=== PATIENT | male | born 1955 | race Asian ===

== ENCOUNTER 2016-10-26 12:26 | Inpatient (IN) | payer MEDICAID ==
[2016-10-26] VITALS (13 sets, daily range): BP systolic 98–137; BP diastolic 49–72
[~2016-10-26] VITALS: Ht 170.2 cm; Wt 74.0 kg
[2016-10-26 12:57] LABS: GLUCOSE,POINT OF CARE 120 MG/DL (70-110)
[2016-10-26] MEDS ORDERED: ONDANSETRON HCL 4 MG/2 ML VIAL IVP ONE (13:45)
[2016-10-26] MEDS ORDERED: FAMOTIDINE 10 MG/ML 2 ML VIAL IVP ONE (13:45)
[2016-10-26] MEDS ORDERED: SODIUM CHLORIDE 0.9% 1,000 ML IV ONE (13:45)
[2016-10-26 14:13] LABS: ANION GAP 5 mmol/L (8-16); CALCIUM, TOTAL 8.5 mg/dL (8.8-10.5); CARBON DIOXIDE 31 mmol/L (22-29); CHLORIDE 106 mmol/L (98-107); CREATININE 0.94 mg/dL (0.60-1.30); GLOMERULAR FILTR. RATE CALC > 60 mL/min (>60); SODIUM SERUM 142 mmol/L (136-145); UREA NITROGEN, BLOOD 12 mg/dL (7-18)
[2016-10-26 14:18] LABS: EOSINOPHILS % (AUTO) 0.2 % (1.0-6.0); LYMPHOCYTES # (AUTO) 0.9 K/uL (1.0-4.8); LYMPHOCYTES % (AUTO) 11.7 % (22.0-44.0); MEAN CORPUSCULAR HEMOGLOBIN 31.3 pg (26.0-34.0); MEAN CORPUSCULAR HGB CONC 33.4 G/dL (31.0-37.0); MEAN CORPUSCULAR VOLUME 94 fL (80-100); MONOCYTES # (AUTO) 0.2 K/uL (0.1-1.0); MONOCYTES % (AUTO) 2.5 % (2.0-9.0); NEUTROPHILS # (AUTO) 6.3 K/uL (1.8-7.7); PLATELET COUNT (AUTO) 276 K/uL (150-450); RED BLOOD CELL COUNT(AUTO) 2.13 MIL/uL (4.50-5.90); RED CELL DISTRIBUTION WIDTH 19.1 % (11.5-14.5); WHITE BLOOD COUNT (AUTO) 7.4 K/uL (4.5-11.0)
[2016-10-26 14:20] LABS: ALANINE AMINOTRANSFERASE 25 U/L (12-78); ALBUMIN 3.2 g/dL (3.4-5.0); ASPARTATE AMINOTRANSFERASE 23 U/L (15-37); BILIRUBIN,TOTAL 0.2 mg/dL (0.1-1.0); TOTAL PROTEIN, SERUM 6.5 g/dL (6.4-8.2)
[2016-10-26 14:22] LABS: HEMATOCRIT 19.9 % (41-53); HEMOGLOBIN 6.7 g/dL (13.5-17.5)
[2016-10-26 14:23] LABS: NEUTROPHILS % (AUTO) 85.6 % (40.0-70.0)
[2016-10-26 14:42] LABS: RBC MORPHOLOGY COMMENT ABNORMAL RBC MORPH
[2016-10-26] MEDS ORDERED: ACETAMINOPHEN 325 MG TABLET PO PRN ×2 (16:15→20:45)
[2016-10-26] MEDS ORDERED: ONDANSETRON HCL 4 MG/2 ML VIAL IVP PRN ×2 (16:15→20:45)
[2016-10-26] MEDS ORDERED: 0.9% SODIUM CHLORIDE 10 ML SYRINGE IVP PRN (16:15)
[2016-10-26 16:42] LABS: APPEARANCE,URINE CLEAR (CLEAR); GLUCOSE, URINE (UA) NEGATIVE (NEGATIVE); KETONES,URINE NEGATIVE (NEGATIVE); LEUKOCYTE ESTERASE ,URINE NEGATIVE (NEGATIVE); OCCULT BLOOD,URINE NEGATIVE (NEGATIVE); PH,URINE 7.5 (5.0-8.0); PROTEIN,URINE TRACE (NEGATIVE)
[2016-10-26 16:44] LABS: ADD UA MICROSCOPIC NO
[2016-10-26] MEDS ORDERED: MAGNESIUM HYDROXIDE SUSPENSION 30 ML UDCUP PO PRN (20:45)
[2016-10-26] MEDS ORDERED: ALBUTEROL SULFATE 2.5 MG/0.5 ML NEB SOLUTION NEB PRN (20:45)
[2016-10-26] MEDS: PANTOPRAZOLE SODIUM 40 MG/VIAL IVP SCH (21:49)
[2016-10-26] MEDS: DOCUSATE SODIUM 100 MG CAPSULE PO SCH (21:49)
[2016-10-27] VITALS (7 sets, daily range): BP systolic 92–122; BP diastolic 50–74
[2016-10-27] MEDS: DEXTROSE 5%-0.45% SODIUM CHL 1,000 ML IV SCH ×2 (04:24→22:39)
[2016-10-27 06:46] LABS: BASOPHILS # (AUTO) 0.02 K/uL (0.00-0.20); BASOPHILS % (AUTO) 0.4 % (0.0-2.0); EOSINOPHILS # (AUTO) 0.09 K/uL (0.00-0.70); EOSINOPHILS % (AUTO) 1.32 % (1.0-6.0); HEMATOCRIT 23.8 % (41-53); HEMOGLOBIN 7.9 g/dL (13.5-17.5); LYMPHOCYTES # (AUTO) 1.7 K/uL (1.0-4.8); LYMPHOCYTES % (AUTO) 26.3 % (22.0-44.0); MEAN CORPUSCULAR VOLUME 94 fL (80-100); MONOCYTES # (AUTO) 0.5 K/uL (0.1-1.0); MONOCYTES % (AUTO) 7.6 % (2.0-9.0); NEUTROPHILS # (AUTO) 4.3 K/uL (1.8-7.7); NEUTROPHILS % (AUTO) 64.4 % (40.0-70.0); PLATELET COUNT (AUTO) 236 K/uL (150-450); RED BLOOD CELL COUNT(AUTO) 2.54 MIL/uL (4.50-5.90); RED CELL DISTRIBUTION WIDTH 16.8 % (11.5-14.5); WHITE BLOOD COUNT (AUTO) 6.6 K/uL (4.5-11.0)
[2016-10-27] MEDS ORDERED: PEG 3350/NA SULF,BICARB,CL/KCL 4000 ML SOLUTION PO ONE (07:30)
[2016-10-27] MEDS: PANTOPRAZOLE SODIUM 40 MG/VIAL IVP SCH ×2 (08:58→20:31)
[2016-10-27] MEDS: DOCUSATE SODIUM 100 MG CAPSULE PO SCH ×2 (08:58→20:32)
[2016-10-28 04:57] VITALS: BP 121/70
[2016-10-28 07:26] LABS: BASOPHILS % (AUTO) 0.3 % (0.0-2.0); EOSINOPHILS % (AUTO) 2.5 % (1.0-6.0); HEMATOCRIT 25.3 % (41-53); HEMOGLOBIN 8.5 g/dL (13.5-17.5); LYMPHOCYTES # (AUTO) 1.2 K/uL (1.0-4.8); MEAN CORPUSCULAR HEMOGLOBIN 31.3 pg (26.0-34.0); MEAN CORPUSCULAR HGB CONC 33.8 G/dL (31.0-37.0); MEAN CORPUSCULAR VOLUME 93 fL (80-100); MONOCYTES # (AUTO) 0.4 K/uL (0.1-1.0); MONOCYTES % (AUTO) 10.1 % (2.0-9.0); NEUTROPHILS # (AUTO) 2.6 K/uL (1.8-7.7); NEUTROPHILS % (AUTO) 59.1 % (40.0-70.0); PLATELET COUNT (AUTO) 255 K/uL (150-450); RED BLOOD CELL COUNT(AUTO) 2.73 MIL/uL (4.50-5.90); RED CELL DISTRIBUTION WIDTH 19.6 % (11.5-14.5); WHITE BLOOD COUNT (AUTO) 4.3 K/uL (4.5-11.0)
[2016-10-28 07:31] LABS: ANION GAP 7 mmol/L (8-16); CALCIUM, TOTAL 8.1 mg/dL (8.8-10.5); CARBON DIOXIDE 30 mmol/L (22-29); CHLORIDE 104 mmol/L (98-107); CREATININE 1.05 mg/dL (0.60-1.30); GLOMERULAR FILTR. RATE CALC > 60 mL/min (>60); POTASSIUM 3.9 mmol/L (3.5-5.1); SODIUM SERUM 141 mmol/L (136-145); UREA NITROGEN, BLOOD 7 mg/dL (7-18)
[2016-10-28] MEDS ORDERED: SODIUM CHLORIDE 0.9% 1,000 ML IV ONE (08:00)
[2016-10-28] MEDS ORDERED: SODIUM TETRADECYL SULFATE 3% 60 MG/2 ML VIAL IVP ONE (08:00)
[2016-10-28 08:12] VITALS: BP 121/70
[2016-10-28] MEDS: DOCUSATE SODIUM 100 MG CAPSULE PO SCH ×2 (09:45→19:52)
[2016-10-28] MEDS: PANTOPRAZOLE SODIUM 40 MG/VIAL IVP SCH ×2 (09:46→19:52)
[2016-10-28 11:31] VITALS: BP 123/66
[2016-10-28] MEDS ORDERED: PHENYLEPHRINE HCL 10 MG/ML VIAL IVP ONE (12:00)
[2016-10-28] MEDS ORDERED: PROPOFOL 1% 20 ML VIAL IVP ONE (12:00)
[2016-10-28] MEDS ORDERED: LIDOCAINE HCL/PF 2% 5 ML VIAL INJ ONE (12:00)
[2016-10-28 16:10] VITALS: BP 105/60
[2016-10-28 20:00] VITALS: BP 105/58
[2016-10-29] VITALS: BP 109/70
[2016-10-29 04:39] VITALS: BP 118/68
[2016-10-29 07:20] VITALS: BP 133/77
[2016-10-29] MEDS: DOCUSATE SODIUM 100 MG CAPSULE PO SCH (08:31)
[2016-10-29] MEDS: PANTOPRAZOLE SODIUM 40 MG/VIAL IVP SCH (08:31)
[2016-10-29 11:29] VITALS: BP 118/73
[2016-10-29] MEDS ORDERED: PANTOPRAZOLE SODIUM 40 MG DR TABLET PO SCH (14:45)
[2016-10-29 15:25] VITALS: BP 131/74
[2016-10-29] MEDS ORDERED: OMEP20 PO (15:45)
[2016-10-30] MEDS ORDERED: PANTOPRAZOLE SODIUM 40 MG DR TABLET PO SCH (09:00)
== END 2016-10-29 16:30 | disposition home or self-care (01) | DRG 241 ==
LOC: EMS 12:28 → 6N 14:48
PROVIDERS: ADMIT Internal Medicine; ATTEND Internal Medicine
PROC: 30233N1 Transfusion of Nonautologous Red Blood Cells into Peripheral Vein, Percutaneous Approach (ICD-10-PCS; 2016-10-26)
PROC: 0DJD8ZZ Inspection of Lower Intestinal Tract, Via Natural or Artificial Opening Endoscopic (ICD-10-PCS; 2016-10-28)
PROC: 0DB68ZX Excision of Stomach, Via Natural or Artificial Opening Endoscopic, Diagnostic (ICD-10-PCS; principal; 2016-10-28 08:30)
DX: K26.0 Acute duodenal ulcer with hemorrhage (principal); I10 Essential (primary) hypertension; D64.9 Anemia, unspecified; E11.9 Type 2 diabetes mellitus without complications; F17.210 Nicotine dependence, cigarettes, uncomplicated; K25.0 Acute gastric ulcer with hemorrhage; K64.1 Second degree hemorrhoids; K52.9 Noninfective gastroenteritis and colitis, unspecified; K27.4 Chronic or unspecified peptic ulcer, site unspecified, with hemorrhage; Z59.0 Homelessness; Z82.49 Family history of ischemic heart disease and other diseases of the circulatory system; Z83.3 Family history of diabetes mellitus
CPT/HCPCS: 82271; 82962; 86850; 86900; 86901; 86920; 87081; 88305; 88312; 96361; 96374; 96375; 99285; C9113; J2370; J2405; J2704; J3490; J7030; P9016

== ENCOUNTER 2017-03-04 09:48 | Inpatient (IN) | payer MEDICAID ==
[~2017-03-04] VITALS: Ht 162.6 cm; Wt 77.4 kg
[~2017-03-04 09:48] MED LIST: OMEP20 PO
[2017-03-04 10:26] LABS: BASOPHILS % (AUTO) 0.4 % (0.0-2.0); EOSINOPHILS % (AUTO) 1.7 % (1.0-6.0); HEMATOCRIT 42.7 % (41-53); HEMOGLOBIN 14.4 g/dL (13.5-17.5); LYMPHOCYTES # (AUTO) 1.8 K/uL (1.0-4.8); LYMPHOCYTES % (AUTO) 24.4 % (22.0-44.0); MEAN CORPUSCULAR HEMOGLOBIN 27.9 pg (26.0-34.0); MEAN CORPUSCULAR HGB CONC 33.6 G/dL (31.0-37.0); MEAN CORPUSCULAR VOLUME 83 fL (80-100); MONOCYTES # (AUTO) 0.6 K/uL (0.1-1.0); MONOCYTES % (AUTO) 7.8 % (2.0-9.0); NEUTROPHILS # (AUTO) 4.9 K/uL (1.8-7.7); NEUTROPHILS % (AUTO) 65.7 % (40.0-70.0); PLATELET COUNT (AUTO) 244 K/uL (150-450); RED BLOOD CELL COUNT(AUTO) 5.14 MIL/uL (4.50-5.90); RED CELL DISTRIBUTION WIDTH 15.5 % (11.5-14.5)
[2017-03-04 10:31] LABS: ANION GAP 6 mmol/L (8-16); CARBON DIOXIDE 30 mmol/L (22-29); CHLORIDE 103 mmol/L (98-107); CREATININE 0.96 mg/dL (0.60-1.30); GLOMERULAR FILTR. RATE CALC > 60 mL/min (>60); GLUCOSE,RANDOM 120 mg/dL (70-110); POTASSIUM 3.9 mmol/L (3.5-5.1); SODIUM SERUM 139 mmol/L (136-145); UREA NITROGEN, BLOOD 14 mg/dL (7-18)
[2017-03-04 10:32] LABS: PROTHROMBIN TIME 10.1 SEC (9.4-11.6)
[2017-03-04 10:48] LABS: B-TYPE NATRIURETIC PEPTIDE 14 pg/mL (0-100)
[2017-03-04 11:00] LABS: ALANINE AMINOTRANSFERASE 27 U/L (12-78); ALBUMIN 3.9 g/dL (3.4-5.0); ALKALINE PHOSPHATASE 76 U/L (46-116); ASPARTATE AMINOTRANSFERASE 24 U/L (15-37); BILIRUBIN,TOTAL 0.6 mg/dL (0.1-1.0); CREATINE KINASE MB 4.9 ng/mL (0-5); CREATINE KINASE, TOTAL 369 U/L (39-308); TOTAL PROTEIN, SERUM 8.2 g/dL (6.4-8.2)
[2017-03-04] MEDS ORDERED: PANTOPRAZOLE SODIUM 40 MG/VIAL IVP ONE ×2 (11:00→12:30)
[2017-03-04] MEDS ORDERED: MORPHINE SULFATE 4 MG/ML SYRINGE IVP ONE ×2 (11:30→14:00)
[2017-03-04] MEDS ORDERED: MORPHINE SULFATE 4 MG/ML SYRINGE IM ONE (11:30)
[2017-03-04] MEDS ORDERED: ONDANSETRON HCL 4 MG/2 ML VIAL IVP ONE ×2 (11:30→14:00)
[2017-03-04] MEDS ORDERED: 0.9% SODIUM CHLORIDE 10 ML VIAL IVP ONE (12:00)
[2017-03-04] MEDS ORDERED: SUCCINYLCHOLINE CHLORIDE 20 MG/ML 10 ML VIAL IVP ONE (12:00)
[2017-03-04] MEDS ORDERED: PROPOFOL 1% 20 ML VIAL IVP ONE (12:00)
[2017-03-04] MEDS ORDERED: HYDROmorphone 2 MG/ML SYRINGE IVP ONE ×3 (12:00→15:15)
[2017-03-04] MEDS ORDERED: DEXAMETHASONE SOD PHOS 4 MG/ML VIAL IVP ONE (12:00)
[2017-03-04] MEDS ORDERED: PHENYLEPHRINE HCL 10 MG/ML VIAL IVP ONE (12:00)
[2017-03-04] MEDS ORDERED: FentaNYL CITRATE-PF 100 MCG/2 ML VIAL IVP ONE (12:00)
[2017-03-04] MEDS ORDERED: MIDAZOLAM HCL 2 MG/2 ML VIAL IVP ONE (12:00)
[2017-03-04] MEDS ORDERED: LIDOCAINE HCL/PF 2% 5 ML VIAL INJ ONE (12:00)
[2017-03-04] MEDS ORDERED: ROCURONIUM BROMIDE 10 MG/ML 5 ML VIAL IVP ONE (12:00)
[2017-03-04] MEDS ORDERED: DONNATAL/LIDOCAINE/MAALOX 55 ML BOTTLE PO ONE (12:30)
[2017-03-04] MEDS ORDERED: SODIUM CHLORIDE 0.9% 1,000 ML IV ONE ×2 (14:00→17:00)
[2017-03-04] MEDS ORDERED: BARIUM SULFATE 0.1% SUSPENSION 450 ML BOTTLE PO ONE (14:00)
[2017-03-04] MEDS ORDERED: IOVERSOL 320 MG/ML 100 ML VIAL ONE (15:27)
[2017-03-04] MEDS ORDERED: LORazepam 2 MG/ML VIAL IVP ONE (15:30)
[2017-03-04] MEDS ORDERED: 0.9% SODIUM CHLORIDE 10 ML SYRINGE IVP PRN ×2 (16:45→22:00)
[2017-03-04] MEDS ORDERED: ONDANSETRON HCL 4 MG/2 ML VIAL IVP PRN ×2 (16:45→22:15)
[2017-03-04] MEDS ORDERED: PIPERACILLIN SODIUM/TAZOBACTAM 3.375 GM/VIAL TP ONE (17:00)
[2017-03-04] MEDS ORDERED: PIPERACILLIN/TAZO 3.375 GM/D5W 50 ML IV ONE (17:00)
[2017-03-04 17:15] LABS: APPEARANCE,URINE CLEAR (CLEAR); BILIRUBIN,URINE NEGATIVE (NEGATIVE); GLUCOSE, URINE (UA) NEGATIVE (NEGATIVE); KETONES,URINE NEGATIVE (NEGATIVE); LEUKOCYTE ESTERASE ,URINE NEGATIVE (NEGATIVE); NITRATE,URINE NEGATIVE (NEGATIVE); OCCULT BLOOD,URINE NEGATIVE (NEGATIVE); PH,URINE 5.5 (5.0-8.0); PROTEIN,URINE TRACE (NEGATIVE); UROBILINOGEN,URINE 0.2 mg/dL (<=1.0)
[2017-03-04 18:06] VITALS: BP 131/74
[2017-03-04] MEDS ORDERED: MEPERIDINE-PF 25 MG/ML SYRINGE IVP PRN (18:45)
[2017-03-04] MEDS ORDERED: FentaNYL CITRATE-PF 100 MCG/2 ML VIAL IVP PRN (18:45)
[2017-03-04] MEDS ORDERED: HYDROmorphone 2 MG/ML SYRINGE IVP PRN (18:45)
[2017-03-04] MEDS ORDERED: RINGERS SOLUTION,LACTATED 1,000 ML IV ONE (18:50)
[2017-03-04] MEDS ORDERED: HEPARIN SODIUM 1000 UNITS/NS 500 ML ONE (19:37)
[2017-03-04 20:25] VITALS: BP 220/97
[2017-03-04] MEDS: PROPOFOL 1000 MG/ISO-OSM 100 ML IV PRN (20:30)
[2017-03-04 21:12] LABS: ABG A-A DIFF O2 305.8 mmHg (10-20.0); ABG BASE EXCESS -4.3 mmol/L (-2.0-3.0); ABG CARBOXYHEMOGLOBIN 1.1 % (0.0-1.5); ABG METHEMOGLOBIN 0.2 % (0.0-1.5); ABG OXYGEN CONTENT 20.3 mL/dL (15.0-23.0); ABG OXYGEN SATURATION 99.6 % (95.0-98.0); ABG OXYHEMOGLOBIN 98.3 % (94.0-100.0); ABG PCO2 44 mmHg (35-45); ABG PH 7.312 (7.35-7.450); O2 DEVICE,BLOOD GAS VENTILATOR (ROOM AIR); PEEP,BG 5 cm H2O; PO2, ARTERIAL BG 363.8 mmHg (79.0-87.0); SITE, BLOOD GAS ARTERIAL LINE; SOURCE, BLOOD GAS ARTERIAL; TEMPERATURE, FAHRENHEIT, BG 97.8 FAHREN (96.0-98.6); VT, ABG 600 ml
[2017-03-04] MEDS ORDERED: SODIUM CHLORIDE 0.9% 250 ML IV ONE (21:31)
[2017-03-04] MEDS: POTASSIUM CHL 20 MEQ/D5-NS 1,000 ML IV SCH (21:53)
[2017-03-04] MEDS: OXYGEN THERAPY IH SCH (21:53)
[2017-03-04] MEDS: NICARDipine 20 MG/DEXT,ISO-OSM 200 ML IV PRN (21:54)
[2017-03-04] MEDS: HYDROmorphone 2 MG/ML SYRINGE IVP PRN (22:25)
[2017-03-05] VITALS (8 sets, daily range): BP systolic 131–166; BP diastolic 49–61
[2017-03-05] MEDS: NICARDipine 20 MG/DEXT,ISO-OSM 200 ML IV PRN ×3 (00:27→09:31)
[2017-03-05] MEDS: PIPERACILLIN/TAZO 3.375 GM/D5W 50 ML IV SCH ×3 (00:27→16:25)
[2017-03-05] MEDS: PROPOFOL 1000 MG/ISO-OSM 100 ML IV PRN ×5 (01:17→17:59)
[2017-03-05] MEDS: POTASSIUM CHL 20 MEQ/D5-NS 1,000 ML IV SCH ×3 (05:27→21:37)
[2017-03-05 05:43] LABS: BASOPHILS % (AUTO) 0.1 % (0.0-2.0); EOSINOPHILS % (AUTO) 0 % (1.0-6.0); HEMOGLOBIN 12.4 g/dL (13.5-17.5); LYMPHOCYTES # (AUTO) 0.3 K/uL (1.0-4.8); LYMPHOCYTES % (AUTO) 5.1 % (22.0-44.0); MEAN CORPUSCULAR HEMOGLOBIN 28.1 pg (26.0-34.0); MEAN CORPUSCULAR HGB CONC 33.5 G/dL (31.0-37.0); MEAN CORPUSCULAR VOLUME 84 fL (80-100); MONOCYTES # (AUTO) 0.1 K/uL (0.1-1.0); MONOCYTES % (AUTO) 2.4 % (2.0-9.0); NEUTROPHILS # (AUTO) 5.4 K/uL (1.8-7.7); PLATELET COUNT (AUTO) 191 K/uL (150-450); RED BLOOD CELL COUNT(AUTO) 4.41 MIL/uL (4.50-5.90); RED CELL DISTRIBUTION WIDTH 15.7 % (11.5-14.5)
[2017-03-05 05:53] LABS: ANION GAP 7 mmol/L (8-16); CALCIUM, TOTAL 7.7 mg/dL (8.8-10.5); CARBON DIOXIDE 24 mmol/L (22-29); CHLORIDE 104 mmol/L (98-107); CREATININE 0.97 mg/dL (0.60-1.30); GLOMERULAR FILTR. RATE CALC > 60 mL/min (>60); GLUCOSE,RANDOM 149 mg/dL (70-110); SODIUM SERUM 135 mmol/L (136-145); UREA NITROGEN, BLOOD 14 mg/dL (7-18)
[2017-03-05 05:54] LABS: NEUTROPHILS % (AUTO) 92.4 % (40.0-70.0)
[2017-03-05] MEDS ORDERED: PANTOPRAZOLE SODIUM 40 MG/VIAL IVP SCH (09:00)
[2017-03-05] MEDS: OXYGEN THERAPY IH SCH ×2 (09:11→20:07)
[2017-03-05] MEDS: PANTOPRAZOLE SODIUM 40 MG/VIAL IVP SCH (09:12)
[2017-03-05] MEDS: HYDROmorphone 2 MG/ML SYRINGE IVP PRN (10:06)
[2017-03-05] MEDS: HydrALAZINE HCL 10 MG TABLET PO SCH ×2 (12:47→16:25)
[2017-03-05] MEDS ORDERED: SODIUM CHLORIDE 0.9% 500 ML IV ONE (20:02)
[2017-03-05] MEDS ORDERED: SODIUM CHLORIDE 0.9% 250 ML IV ONE (20:02)
[2017-03-05] MEDS ORDERED: HydrALAZINE HCL 20 MG/ML VIAL IVP SCH (21:00)
[2017-03-05] MEDS: FentaNYL CITRATE PF 500 MCG in DEXTROSE 5%-WATER 90 ML IV PRN (21:38)
[2017-03-06] VITALS (10 sets, daily range): BP systolic 126–161; BP diastolic 43–62
[2017-03-06] MEDS: PIPERACILLIN/TAZO 3.375 GM/D5W 50 ML IV SCH ×3 (00:38→16:58)
[2017-03-06] MEDS: PROPOFOL 1000 MG/ISO-OSM 100 ML IV PRN ×3 (01:27→08:59)
[2017-03-06] MEDS: HydrALAZINE HCL 20 MG/ML VIAL IVP SCH ×4 (02:33→21:00)
[2017-03-06 04:48] LABS: HEMATOCRIT 31.8 % (41-53); HEMOGLOBIN 10.8 g/dL (13.5-17.5); MEAN CORPUSCULAR HGB CONC 33.9 G/dL (31.0-37.0); MEAN CORPUSCULAR VOLUME 83 fL (80-100); PLATELET COUNT (AUTO) 187 K/uL (150-450); RED BLOOD CELL COUNT(AUTO) 3.84 MIL/uL (4.50-5.90); RED CELL DISTRIBUTION WIDTH 16.2 % (11.5-14.5)
[2017-03-06] MEDS: POTASSIUM CHL 20 MEQ/D5-NS 1,000 ML IV SCH ×3 (04:48→20:48)
[2017-03-06] MEDS: FentaNYL CITRATE PF 500 MCG in DEXTROSE 5%-WATER 90 ML IV PRN ×2 (04:49→09:45)
[2017-03-06 04:51] LABS: ANION GAP 6 mmol/L (8-16); CALCIUM, TOTAL 7.6 mg/dL (8.8-10.5); CARBON DIOXIDE 26 mmol/L (22-29); CHLORIDE 105 mmol/L (98-107); CREATININE 0.86 mg/dL (0.60-1.30); GLOMERULAR FILTR. RATE CALC > 60 mL/min (>60); GLUCOSE,RANDOM 118 mg/dL (70-110); POTASSIUM 3.8 mmol/L (3.5-5.1); SODIUM SERUM 137 mmol/L (136-145); UREA NITROGEN, BLOOD 10 mg/dL (7-18)
[2017-03-06] MEDS: OXYGEN THERAPY IH SCH ×2 (07:39→20:49)
[2017-03-06 07:57] LABS: BAND NEUTROPHILS % (MANUAL) 13 % (1-5); LYMPHOCYTES % (MANUAL) 14 % (22-44); MONOCYTES % (MANUAL) 7 % (2-9); SEGMENTED NEUTROPHILS % 66 % (40-70)
[2017-03-06] MEDS: PANTOPRAZOLE SODIUM 40 MG/VIAL IVP SCH (08:25)
[2017-03-06 08:45] LABS: SOURCE, BLOOD GAS ARTERIAL; TEMPERATURE, FAHRENHEIT, BG 98.6 FAHREN (96.0-98.6)
[2017-03-06 08:49] LABS: ABG A-A DIFF O2 84.1 mmHg (10-20.0); ABG BASE EXCESS -0.4 mmol/L (-2.0-3.0); ABG CARBOXYHEMOGLOBIN 0.5 % (0.0-1.5); ABG METHEMOGLOBIN 0.2 % (0.0-1.5); ABG OXYGEN CONTENT 16.1 mL/dL (15.0-23.0); ABG OXYGEN SATURATION 98.8 % (95.0-98.0); ABG OXYHEMOGLOBIN 98.1 % (94.0-100.0); ABG PCO2 46 mmHg (35-45); ABG PH 7.354 (7.35-7.450); ABG TOTAL HEMOGLOBIN 11.5 G/dL (12.0-18.0); PO2, ARTERIAL BG 148.1 mmHg (79.0-87.0); SITE, BLOOD GAS ARTERIAL LINE
[2017-03-06 08:50] LABS: O2 DEVICE,BLOOD GAS VENTILATOR (ROOM AIR); PEEP,BG 5 cm H2O; VT, ABG 600 ml
[2017-03-06] MEDS: METOPROLOL TARTRATE 5 MG/5 ML VIAL IVP PRN ×2 (11:11→15:13)
[2017-03-06] MEDS: HALOPERIDOL LACTATE 5 MG/ML VIAL IVP PRN (11:12)
[2017-03-06 12:06] LABS: ABG METHEMOGLOBIN 0.1 % (0.0-1.5); ABG TOTAL HEMOGLOBIN 11.7 G/dL (12.0-18.0); SOURCE, BLOOD GAS ARTERIAL; TEMPERATURE, FAHRENHEIT, BG 98.6 FAHREN (96.0-98.6)
[2017-03-06 12:09] LABS: ABG A-A DIFF O2 109.1 mmHg (10-20.0); ABG BASE EXCESS -1.5 mmol/L (-2.0-3.0); ABG HCO3 23.2 mmol/L (22.0-26.0); ABG OXYGEN CONTENT 16.2 mL/dL (15.0-23.0); ABG OXYGEN SATURATION 98.4 % (95.0-98.0); ABG OXYHEMOGLOBIN 97.3 % (94.0-100.0); ABG PCO2 43 mmHg (35-45); ABG PH 7.362 (7.35-7.450); PO2, ARTERIAL BG 126.5 mmHg (79.0-87.0)
[2017-03-06 12:12] LABS: LACTATE DEHYDROGENASE 239 U/L (85-227)
[2017-03-06 12:30] LABS: CPAP, BG 0 cm H2O; O2 DEVICE,BLOOD GAS VENTILATOR (ROOM AIR); PEEP,BG 0 cm H2O; PRESSURE SUPPORT, BG 10 cm H2O; SITE, BLOOD GAS ARTERIAL LINE; SPONTANEOUS VT, BG 664 ml; VENT MODE, BG SPONTANEOUS (ROOM AIR)
[2017-03-06] MEDS: HYDROmorphone 2 MG/ML SYRINGE IVP PRN ×2 (15:14→21:39)
[2017-03-07] VITALS (12 sets, daily range): BP systolic 91–169; BP diastolic 44–73
[2017-03-07] MEDS: HYDROmorphone 2 MG/ML SYRINGE IVP PRN ×5 (00:51→12:43)
[2017-03-07] MEDS: PIPERACILLIN/TAZO 3.375 GM/D5W 50 ML IV SCH ×3 (00:53→17:43)
[2017-03-07] MEDS: HydrALAZINE HCL 20 MG/ML VIAL IVP SCH ×4 (02:13→20:24)
[2017-03-07] MEDS: HALOPERIDOL LACTATE 5 MG/ML VIAL IVP PRN (03:44)
[2017-03-07] MEDS: POTASSIUM CHL 20 MEQ/D5-NS 1,000 ML IV SCH ×3 (03:46→20:24)
[2017-03-07] MEDS: METOPROLOL TARTRATE 5 MG/5 ML VIAL IVP PRN ×2 (04:21→06:30)
[2017-03-07 05:08] LABS: EOSINOPHILS % (AUTO) 0.7 % (1.0-6.0); HEMATOCRIT 33.1 % (41-53); HEMOGLOBIN 11.1 g/dL (13.5-17.5); LYMPHOCYTES # (AUTO) 0.9 K/uL (1.0-4.8); LYMPHOCYTES % (AUTO) 9.8 % (22.0-44.0); MEAN CORPUSCULAR HEMOGLOBIN 28.4 pg (26.0-34.0); MEAN CORPUSCULAR HGB CONC 33.6 G/dL (31.0-37.0); MEAN CORPUSCULAR VOLUME 85 fL (80-100); MONOCYTES # (AUTO) 0.5 K/uL (0.1-1.0); MONOCYTES % (AUTO) 5.8 % (2.0-9.0); NEUTROPHILS # (AUTO) 7.5 K/uL (1.8-7.7); NEUTROPHILS % (AUTO) 83.7 % (40.0-70.0); PLATELET COUNT (AUTO) 194 K/uL (150-450); RED BLOOD CELL COUNT(AUTO) 3.91 MIL/uL (4.50-5.90); RED CELL DISTRIBUTION WIDTH 16.7 % (11.5-14.5)
[2017-03-07 05:20] LABS: ALANINE AMINOTRANSFERASE 23 U/L (12-78); ALBUMIN 2.3 g/dL (3.4-5.0); ALKALINE PHOSPHATASE 48 U/L (46-116); ANION GAP 5 mmol/L (8-16); ASPARTATE AMINOTRANSFERASE 24 U/L (15-37); BILIRUBIN,TOTAL 0.5 mg/dL (0.1-1.0); CARBON DIOXIDE 26 mmol/L (22-29); CHLORIDE 107 mmol/L (98-107); CREATININE 0.88 mg/dL (0.60-1.30); GLOMERULAR FILTR. RATE CALC > 60 mL/min (>60); GLUCOSE,RANDOM 127 mg/dL (70-110); POTASSIUM 3.9 mmol/L (3.5-5.1); SODIUM SERUM 138 mmol/L (136-145); TOTAL PROTEIN, SERUM 6.3 g/dL (6.4-8.2); UREA NITROGEN, BLOOD 7 mg/dL (7-18)
[2017-03-07] MEDS: PANTOPRAZOLE SODIUM 40 MG/VIAL IVP SCH (09:28)
[2017-03-07] MEDS: OXYGEN THERAPY IH SCH ×2 (09:28→20:23)
[2017-03-07] MEDS: HYDROmorphone HCL 2 MG TABLET PO PRN (18:40)
[2017-03-08] MEDS: HYDROmorphone HCL 2 MG TABLET PO PRN ×3 (00:35→14:30)
[2017-03-08] MEDS: PIPERACILLIN/TAZO 3.375 GM/D5W 50 ML IV SCH ×3 (01:52→17:15)
[2017-03-08] MEDS: HydrALAZINE HCL 20 MG/ML VIAL IVP SCH ×4 (03:57→22:41)
[2017-03-08 04:09] VITALS: BP 123/70
[2017-03-08] MEDS: POTASSIUM CHL 20 MEQ/D5-NS 1,000 ML IV SCH ×2 (05:42→17:18)
[2017-03-08] MEDS: HALOPERIDOL LACTATE 5 MG/ML VIAL IVP PRN (05:42)
[2017-03-08 07:32] LABS: BASOPHILS % (AUTO) 0.1 % (0.0-2.0); EOSINOPHILS % (AUTO) 1.6 % (1.0-6.0); HEMATOCRIT 29.7 % (41-53); HEMOGLOBIN 10.2 g/dL (13.5-17.5); LYMPHOCYTES # (AUTO) 0.6 K/uL (1.0-4.8); LYMPHOCYTES % (AUTO) 7.9 % (22.0-44.0); MEAN CORPUSCULAR HEMOGLOBIN 28.5 pg (26.0-34.0); MEAN CORPUSCULAR HGB CONC 34.3 G/dL (31.0-37.0); MEAN CORPUSCULAR VOLUME 83 fL (80-100); MONOCYTES # (AUTO) 0.7 K/uL (0.1-1.0); MONOCYTES % (AUTO) 9.1 % (2.0-9.0); NEUTROPHILS # (AUTO) 6.4 K/uL (1.8-7.7); NEUTROPHILS % (AUTO) 81.3 % (40.0-70.0); PLATELET COUNT (AUTO) 195 K/uL (150-450); RED BLOOD CELL COUNT(AUTO) 3.57 MIL/uL (4.50-5.90); RED CELL DISTRIBUTION WIDTH 15.7 % (11.5-14.5)
[2017-03-08 07:33] VITALS: BP 152/67
[2017-03-08 08:08] LABS: ALANINE AMINOTRANSFERASE 22 U/L (12-78); ALBUMIN 2.2 g/dL (3.4-5.0); ALKALINE PHOSPHATASE 75 U/L (46-116); ANION GAP 6 mmol/L (8-16); ASPARTATE AMINOTRANSFERASE 21 U/L (15-37); BILIRUBIN,TOTAL 0.7 mg/dL (0.1-1.0); CALCIUM, TOTAL 8.3 mg/dL (8.8-10.5); CARBON DIOXIDE 26 mmol/L (22-29); CHLORIDE 104 mmol/L (98-107); CREATININE 0.78 mg/dL (0.60-1.30); GLOMERULAR FILTR. RATE CALC > 60 mL/min (>60); GLUCOSE,RANDOM 113 mg/dL (70-110); POTASSIUM 3.6 mmol/L (3.5-5.1); SODIUM SERUM 136 mmol/L (136-145); TOTAL PROTEIN, SERUM 6.1 g/dL (6.4-8.2); UREA NITROGEN, BLOOD 6 mg/dL (7-18)
[2017-03-08] MEDS: PANTOPRAZOLE SODIUM 40 MG/VIAL IVP SCH (08:21)
[2017-03-08] MEDS: OXYGEN THERAPY IH SCH ×2 (08:22→20:42)
[2017-03-08 11:09] VITALS: BP 132/75
[2017-03-08 15:18] VITALS: BP 132/69
[2017-03-08 19:28] VITALS: BP 130/83
[2017-03-08 22:38] VITALS: BP 132/85
[2017-03-09] MEDS: PIPERACILLIN/TAZO 3.375 GM/D5W 50 ML IV SCH ×3 (01:19→16:02)
[2017-03-09] MEDS: POTASSIUM CHL 20 MEQ/D5-NS 1,000 ML IV SCH ×2 (01:20→08:38)
[2017-03-09 04:03] VITALS: BP 134/80
[2017-03-09] MEDS: HydrALAZINE HCL 20 MG/ML VIAL IVP SCH ×4 (04:06→21:18)
[2017-03-09 06:09] LABS: BASOPHILS % (AUTO) 0.1 % (0.0-2.0); EOSINOPHILS % (AUTO) 2.3 % (1.0-6.0); HEMATOCRIT 33.4 % (41-53); HEMOGLOBIN 11.4 g/dL (13.5-17.5); LYMPHOCYTES % (AUTO) 13.6 % (22.0-44.0); MEAN CORPUSCULAR HEMOGLOBIN 28.2 pg (26.0-34.0); MEAN CORPUSCULAR HGB CONC 34.1 G/dL (31.0-37.0); MEAN CORPUSCULAR VOLUME 83 fL (80-100); MONOCYTES % (AUTO) 13.6 % (2.0-9.0); NEUTROPHILS # (AUTO) 5.4 K/uL (1.8-7.7); NEUTROPHILS % (AUTO) 70.4 % (40.0-70.0); PLATELET COUNT (AUTO) 242 K/uL (150-450); RED BLOOD CELL COUNT(AUTO) 4.04 MIL/uL (4.50-5.90); RED CELL DISTRIBUTION WIDTH 15.7 % (11.5-14.5)
[2017-03-09 06:26] LABS: ALANINE AMINOTRANSFERASE 28 U/L (12-78); ALBUMIN 2.2 g/dL (3.4-5.0); ALKALINE PHOSPHATASE 91 U/L (46-116); ANION GAP 8 mmol/L (8-16); ASPARTATE AMINOTRANSFERASE 18 U/L (15-37); BILIRUBIN,TOTAL 0.6 mg/dL (0.1-1.0); CALCIUM, TOTAL 8.7 mg/dL (8.8-10.5); CARBON DIOXIDE 26 mmol/L (22-29); CHLORIDE 103 mmol/L (98-107); CREATININE 0.84 mg/dL (0.60-1.30); GLOMERULAR FILTR. RATE CALC > 60 mL/min (>60); GLUCOSE,RANDOM 124 mg/dL (70-110); POTASSIUM 3.7 mmol/L (3.5-5.1); SODIUM SERUM 137 mmol/L (136-145); TOTAL PROTEIN, SERUM 6.6 g/dL (6.4-8.2); UREA NITROGEN, BLOOD 5 mg/dL (7-18)
[2017-03-09 07:55] VITALS: BP 136/71
[2017-03-09] MEDS: PANTOPRAZOLE SODIUM 40 MG/VIAL IVP SCH (08:01)
[2017-03-09] MEDS: OXYGEN THERAPY IH SCH ×2 (08:01→20:00)
[2017-03-09] MEDS: HYDROmorphone HCL 2 MG TABLET PO PRN ×2 (08:43→22:52)
[2017-03-09 12:07] VITALS: BP 136/77
[2017-03-09 16:57] VITALS: BP 129/62
[2017-03-09 20:15] VITALS: BP 140/74
[2017-03-09 22:50] VITALS: BP 134/79
[2017-03-10] MEDS: PIPERACILLIN/TAZO 3.375 GM/D5W 50 ML IV SCH ×3 (01:29→17:05)
[2017-03-10 03:18] VITALS: BP 130/79
[2017-03-10] MEDS: HydrALAZINE HCL 20 MG/ML VIAL IVP SCH ×4 (03:22→20:30)
[2017-03-10] MEDS: OXYGEN THERAPY IH SCH ×2 (08:00→20:00)
[2017-03-10 08:04] VITALS: BP 131/77
[2017-03-10] MEDS: PANTOPRAZOLE SODIUM 40 MG/VIAL IVP SCH (08:42)
[2017-03-10] MEDS: HYDROmorphone HCL 2 MG TABLET PO PRN ×2 (08:42→20:33)
[2017-03-10 12:05] VITALS: BP 124/69
[2017-03-10 12:07] VITALS: BP 124/69
[2017-03-10] MEDS ORDERED: INFLUENZA VIRUS VACCINE QVS 2017-18 (3YR+)/PF 60 MCG/0.5 ML SYRINGE IM ONE (16:00)
[2017-03-10 16:08] VITALS: BP 150/87
[2017-03-10 18:49] LABS: C.DIFF GDH ANTIGEN, Stool Negative (Negative); C.DIFF TOXINS A&B, Stool Negative (Negative)
[2017-03-10 19:35] VITALS: BP 116/61
[2017-03-11] VITALS (7 sets, daily range): BP systolic 110–143; BP diastolic 48–75
[2017-03-11] MEDS: PIPERACILLIN/TAZO 3.375 GM/D5W 50 ML IV SCH ×3 (01:54→17:15)
[2017-03-11] MEDS: HydrALAZINE HCL 20 MG/ML VIAL IVP SCH ×4 (03:41→22:50)
[2017-03-11] MEDS: OXYGEN THERAPY IH SCH ×2 (08:00→20:00)
[2017-03-11] MEDS: PANTOPRAZOLE SODIUM 40 MG/VIAL IVP SCH (08:07)
[2017-03-11] MEDS: HYDROmorphone HCL 2 MG TABLET PO PRN (09:01)
[2017-03-11 09:36] LABS: BASOPHILS % (AUTO) 0.3 % (0.0-2.0); EOSINOPHILS % (AUTO) 3.4 % (1.0-6.0); HEMATOCRIT 37.3 % (41-53); HEMOGLOBIN 12.7 g/dL (13.5-17.5); LYMPHOCYTES # (AUTO) 1.1 K/uL (1.0-4.8); LYMPHOCYTES % (AUTO) 12.1 % (22.0-44.0); MEAN CORPUSCULAR HEMOGLOBIN 27.8 pg (26.0-34.0); MEAN CORPUSCULAR VOLUME 82 fL (80-100); MONOCYTES # (AUTO) 0.8 K/uL (0.1-1.0); MONOCYTES % (AUTO) 9.4 % (2.0-9.0); NEUTROPHILS # (AUTO) 6.5 K/uL (1.8-7.7); NEUTROPHILS % (AUTO) 74.8 % (40.0-70.0); PLATELET COUNT (AUTO) 318 K/uL (150-450); RED BLOOD CELL COUNT(AUTO) 4.56 MIL/uL (4.50-5.90); RED CELL DISTRIBUTION WIDTH 16.2 % (11.5-14.5)
[2017-03-11 09:45] LABS: ANION GAP 12 mmol/L (8-16); CALCIUM, TOTAL 8.9 mg/dL (8.8-10.5); CARBON DIOXIDE 25 mmol/L (22-29); CHLORIDE 99 mmol/L (98-107); GLOMERULAR FILTR. RATE CALC > 60 mL/min (>60); GLUCOSE,RANDOM 146 mg/dL (70-110); POTASSIUM 4.1 mmol/L (3.5-5.1); SODIUM SERUM 136 mmol/L (136-145); UREA NITROGEN, BLOOD 17 mg/dL (7-18)
[2017-03-12] MEDS: PIPERACILLIN/TAZO 3.375 GM/D5W 50 ML IV SCH ×2 (00:46→08:18)
[2017-03-12 00:51] VITALS: BP 98/64
[2017-03-12] MEDS: HydrALAZINE HCL 20 MG/ML VIAL IVP SCH ×3 (03:00→15:00)
[2017-03-12 04:00] VITALS: BP 115/70
[2017-03-12 07:51] VITALS: BP 148/66
[2017-03-12] MEDS: OXYGEN THERAPY IH SCH (08:00)
[2017-03-12] MEDS: HYDROmorphone HCL 2 MG TABLET PO PRN (08:16)
[2017-03-12] MEDS: PANTOPRAZOLE SODIUM 40 MG/VIAL IVP SCH (08:16)
[2017-03-12] MEDS ORDERED: PANT40TA25 PO (11:41)
== END 2017-03-12 15:15 | DRG 223 ==
LOC: EMS 09:49 → 6N 17:15 → ICU 21:17 → 5S 03-07 14:20
PROVIDERS: ADMIT Family Medicine; ATTEND Family Medicine
PROC: 5A1945Z Respiratory Ventilation, 24-96 Consecutive Hours (ICD-10-PCS; 2017-03-04)
PROC: 0BH17EZ Insertion of Endotracheal Airway into Trachea, Via Natural or Artificial Opening (ICD-10-PCS; 2017-03-04)
PROC: 0DU907Z Supplement Duodenum with Autologous Tissue Substitute, Open Approach (ICD-10-PCS; principal; 2017-03-04 19:20)
DX: K25.5 Chronic or unspecified gastric ulcer with perforation (principal); J96.00 Acute respiratory failure, unspecified whether with hypoxia or hypercapnia; K65.9 Peritonitis, unspecified; I10 Essential (primary) hypertension; E11.9 Type 2 diabetes mellitus without complications; D64.9 Anemia, unspecified; K66.8 Other specified disorders of peritoneum; K26.5 Chronic or unspecified duodenal ulcer with perforation; F17.210 Nicotine dependence, cigarettes, uncomplicated; F15.10 Other stimulant abuse, uncomplicated; K80.20 Calculus of gallbladder without cholecystitis without obstruction; Z82.49 Family history of ischemic heart disease and other diseases of the circulatory system; Z91.19 Patient's noncompliance with other medical treatment and regimen
CPT/HCPCS: 74177; 76604; 82805; 83615; 83735; 85007; 86850; 86900; 86901; 86920; 87070; 87081; 87205; 87324; 87449; 93005; 94003; 96361; 96365; 96375; 96376; 97116; 97162; 97166; 97530; 97535; 99285; 99406; C9113; J0330; J0360; J1100; J1170; J1630; J1644; J2060; J2250; J2270; J2370; J2405; J2543; J2704; J3010; J3480; J3490; J7030; J7040; J7050; J7060; J7120

== ENCOUNTER 2021-01-31 03:27 | Inpatient (IN) | payer MEDICAID, MEDICARE ==
[~2021-01-31] VITALS: Ht 162.6 cm; Wt 54.5 kg
[~2021-01-31 03:27] MED LIST changes: -OMEP20 PO; +PANT-31 PO
[2021-01-31 03:48] LABS: GLUCOMETER DEV NAME(LOC) ERT.5; GLUCOSE,POINT OF CARE 164 MG/DL (70-110)
[2021-01-31 04:40] LABS: BASOPHILS % (AUTO) 0.2 % (0.0-2.0); EOSINOPHILS % (AUTO) 0.1 % (1.0-6.0); HEMATOCRIT 45.4 % (41-53); HEMOGLOBIN 15.2 g/dL (13.5-17.5); LYMPHOCYTES # (AUTO) 0.5 K/uL (1.0-4.8); LYMPHOCYTES % (AUTO) 4.7 % (22.0-44.0); MEAN CORPUSCULAR HEMOGLOBIN 28.4 pg (26.0-34.0); MEAN CORPUSCULAR HGB CONC 33.6 G/dL (31.0-37.0); MEAN CORPUSCULAR VOLUME 85 fL (80-100); MONOCYTES # (AUTO) 0.4 K/uL (0.1-1.0); MONOCYTES % (AUTO) 4.4 % (2.0-9.0); NEUTROPHILS # (AUTO) 9.1 K/uL (1.8-7.7); PLATELET COUNT (AUTO) 157 K/uL (150-450); RED BLOOD CELL COUNT(AUTO) 5.35 MIL/uL (4.50-5.90); RED CELL DISTRIBUTION WIDTH 14.5 % (11.5-14.5)
[2021-01-31] MEDS ORDERED: ACETAMINOPHEN 500 MG TABLET PO ONE (04:45)
[2021-01-31 04:48] LABS: COVID AG,FIA SOURCE NASOPHARYNGEAL
[2021-01-31 04:53] LABS: NEUTROPHILS % (AUTO) 90.6 % (40.0-70.0)
[2021-01-31 04:54] LABS: LACTIC ACID 1.3 mmol/L (0.4-2.0)
[2021-01-31 05:01] LABS: CALCIUM, TOTAL 8.6 mg/dL (8.8-10.5); CREATININE 1.56 mg/dL (0.60-1.30); POTASSIUM 3.5 mmol/L (3.5-5.1)
[2021-01-31 05:04] LABS: ALBUMIN 3.4 g/dL (3.4-5.0); BILIRUBIN,TOTAL 0.6 mg/dL (0.1-1.0); TOTAL PROTEIN, SERUM 8.4 g/dL (6.4-8.2)
[2021-01-31] MEDS ORDERED: SODIUM CHLORIDE 0.9% 2,000 ML IV ONE (05:30)
[2021-01-31 05:49] LABS: APPEARANCE,URINE CLEAR (CLEAR); BILIRUBIN,URINE NEGATIVE (NEGATIVE); GLUCOSE, URINE (UA) NEGATIVE (NEGATIVE); KETONES,URINE NEGATIVE (NEGATIVE); LEUKOCYTE ESTERASE ,URINE SMALL (NEGATIVE); NITRATE,URINE POSITIVE (NEGATIVE); OCCULT BLOOD,URINE MODERATE (NEGATIVE); PROTEIN,URINE SEE CONFIRM (NEGATIVE)
[2021-01-31 05:52] LABS: SULFOSALICYLIC ACID,URINE 3+ (Negative)
[2021-01-31 06:00] LABS: AMPHET/METH SCREEN,URINE POSITIVE (NEGATIVE); BACTERIA,URINE Moderate /HPF (None Seen); BARBITURATE SCREEN, URINE NEGATIVE (NEGATIVE); BENZODIAZEPINES SCREEN,URINE NEGATIVE (NEGATIVE); CANNABINOID SCREEN,URINE NEGATIVE (NEGATIVE); COCAINE SCREEN,URINE NEGATIVE (NEGATIVE); METHADONE SCREEN, URINE NEGATIVE (NEGATIVE); OPIATE SCREEN,URINE NEGATIVE (NEGATIVE); WBC,URINE 51-100 /HPF (0-5)
[2021-01-31 06:03] LABS: PHENCYCLIDINE SCREEN,URINE NEGATIVE (NEGATIVE)
[2021-01-31] MEDS ORDERED: CefTRIAXone 1 GM/DEXTROSE 50 ML IV ONE (06:30)
[2021-01-31] MEDS ORDERED: ONDANSETRON HCL 4 MG/2 ML VIAL IVP PRN (07:15)
[2021-01-31] MEDS ORDERED: ACETAMINOPHEN 325 MG TABLET PO PRN ×2 (07:15→12:15)
[2021-01-31] MEDS ORDERED: 0.9% SODIUM CHLORIDE 10 ML SYRINGE IVP PRN (07:15)
[2021-01-31 14:35] VITALS: BP 152/91
== END 2021-01-31 15:05 | disposition left against medical advice (07) | DRG 872 ==
LOC: EMS 03:28 → 6N 13:39
PROVIDERS: ADMIT Hospitalist; ATTEND Hospitalist
DX: A41.9 Sepsis, unspecified organism (principal); N17.9 Acute kidney failure, unspecified; N39.0 Urinary tract infection, site not specified; Z20.822 Contact with and (suspected) exposure to COVID-19; E11.65 Type 2 diabetes mellitus with hyperglycemia; K80.20 Calculus of gallbladder without cholecystitis without obstruction; I10 Essential (primary) hypertension; F17.210 Nicotine dependence, cigarettes, uncomplicated; Z53.29 Procedure and treatment not carried out because of patient's decision for other reasons; Z59.0 Homelessness
CPT/HCPCS: 71045; 80053; 81001; 81002; 82962; 83605; 83690; 84484; 85025; 87077; 87086; 87186; 93005; 99285; G0480; 36415-L1; 36415-TC

== ENCOUNTER 2022-03-16 05:42 | Inpatient (IN) | payer MEDICARE ==
[~2022-03-16] VITALS: Ht 162.6 cm; Wt 33.1 kg
[2022-03-16] MEDS ORDERED: MethylPREDNISolone SOD SUCC 125 MG/2 ML VIAL IVP ONE (06:15)
[2022-03-16] MEDS ORDERED: IPRATROPIUM BROMIDE 0.5 MG/2.5 ML NEB SOLUTION NEB ONE (06:30)
[2022-03-16] MEDS ORDERED: ALBUTEROL SULFATE 5 MG/ML 20 ML NEB SOLN [BULK] NEB ONE (06:30)
[2022-03-16 06:36] LABS: BASOPHILS % (AUTO) 0.7 % (0.0-2.0); EOSINOPHILS % (AUTO) 3.8 % (1.0-6.0); HEMATOCRIT 45.1 % (41-53); LYMPHOCYTES # (AUTO) 1.5 K/uL (1.0-4.8); MEAN CORPUSCULAR HEMOGLOBIN 28.4 pg (26.0-34.0); MEAN CORPUSCULAR HGB CONC 33.4 G/dL (31.0-37.0); MEAN CORPUSCULAR VOLUME 85 fL (80-100); MONOCYTES # (AUTO) 0.6 K/uL (0.1-1.0); MONOCYTES % (AUTO) 8.3 % (2.0-9.0); NEUTROPHILS # (AUTO) 4.4 K/uL (1.8-7.7); NEUTROPHILS % (AUTO) 65.2 % (40.0-70.0); PLATELET COUNT (AUTO) 167 K/uL (150-450); RED BLOOD CELL COUNT(AUTO) 5.29 MIL/uL (4.50-5.90); RED CELL DISTRIBUTION WIDTH 15.1 % (11.5-14.5)
[2022-03-16] MEDS ORDERED: ALBUTEROL SULFATE 2.5 MG/0.5 ML NEB SOLUTION NEB ONE ×2 (06:45→09:15)
[2022-03-16 06:52] LABS: CALCIUM, TOTAL 8.7 mg/dL (8.8-10.5); CREATININE 1.23 mg/dL (0.60-1.30); POTASSIUM 4.2 mmol/L (3.5-5.1)
[2022-03-16 07:16] LABS: ALBUMIN 3.4 g/dL (3.4-5.0); BILIRUBIN,TOTAL 0.3 mg/dL (0.1-1.0); TOTAL PROTEIN, SERUM 7.9 g/dL (6.4-8.2)
[2022-03-16 07:16] LABS: COVID AG,FIA SOURCE NASAL SWAB
[2022-03-16 07:27] LABS: ABG BASE EXCESS -1.4 mmol/L (-2.0-3.0); ABG CARBOXYHEMOGLOBIN 0.9 % (0.0-1.5); ABG METHEMOGLOBIN 0.1 % (0.0-1.5); ABG OXYGEN CONTENT 20.5 mL/dL (15.0-23.0); ABG OXYGEN SATURATION 98.9 % (95.0-98.0); ABG OXYHEMOGLOBIN 97.9 % (94.0-100.0); ABG PCO2 49 mmHg (35-45); ABG PH 7.322 (7.35-7.450); ABG TOTAL HEMOGLOBIN 14.6 G/dL (12.0-18.0); PO2, ARTERIAL BG 208.8 mmHg (79.0-87.0); SOURCE, BLOOD GAS ARTERIAL; TEMPERATURE, FAHRENHEIT, BG 98.7 FAHREN (96.0-98.6)
[2022-03-16 07:29] LABS: ABG A-A DIFF O2 165.1 mmHg (10-20.0); O2 DEVICE,BLOOD GAS BIPAP (ROOM AIR); SITE, BLOOD GAS RT RADIAL
[2022-03-16 07:30] LABS: INSPIRATORY TIME, BG 0.9 SEC; SPONTANEOUS VT, BG 603 ml
[2022-03-16] MEDS ORDERED: HydrALAZINE HCL 20 MG/ML VIAL IVP ONE (07:30)
[2022-03-16 07:47] LABS: INFLUENZA TYPE A NEGATIVE FOR TYPE A (NEGATIVE); INFLUENZA TYPE B NEGATIVE FOR TYPE B (NEGATIVE)
[2022-03-16 08:06] LABS: APPEARANCE,URINE CLEAR (CLEAR); BILIRUBIN,URINE NEGATIVE (NEGATIVE); GLUCOSE, URINE (UA) TRACE mg/dL (NEGATIVE); KETONES,URINE NEGATIVE (NEGATIVE); LEUKOCYTE ESTERASE ,URINE SMALL (NEGATIVE); NITRATE,URINE NEGATIVE (NEGATIVE); OCCULT BLOOD,URINE TRACE (NEGATIVE); PROTEIN,URINE 300-600,SEE CONFIRM mg/dL (NEGATIVE); SPECIFIC GRAVITIY, URINE 1.017 (1.003-1.030); UROBILINOGEN,URINE <=1.0 mg/dL (<=1.0)
[2022-03-16 08:19] LABS: SULFOSALICYLIC ACID,URINE 3+ (Negative)
[2022-03-16 08:22] LABS: BACTERIA,URINE None Seen /HPF (None Seen); RBC,URINE None Seen /HPF (0-2); SQUAMOUS EPITHELIAL CELL,UR Few /LPF (None Seen)
[2022-03-16] MEDS ORDERED: FUROSEMIDE 40 MG/4 ML VIAL IVP ONE (08:45)
[2022-03-16] MEDS ORDERED: IPRATROPIUM BROMIDE 0.5 MG/2.5 ML NEB SOLUTION NEB PRN (13:15)
[2022-03-16] MEDS ORDERED: ZOLPIDEM TARTRATE 5 MG TABLET PO PRN (13:15)
[2022-03-16] MEDS ORDERED: ACETAMINOPHEN 325 MG TABLET PO PRN (13:15)
[2022-03-16] MEDS ORDERED: HYDROCODONE/ACETAMINOPHEN 5-325 MG TABLET PO PRN (13:15)
[2022-03-16] MEDS ORDERED: ALBUTEROL SULFATE 2.5 MG/0.5 ML NEB SOLUTION NEB PRN (13:15)
[2022-03-16] MEDS ORDERED: MORPHINE SULFATE 2 MG/ML SYRINGE IVP PRN (13:15)
[2022-03-16] MEDS ORDERED: BISACODYL 10 MG RECTAL RECTAL SUPPOSITORY PR PRN (13:15)
[2022-03-16] MEDS ORDERED: ONDANSETRON HCL 4 MG/2 ML VIAL IVP PRN (13:15)
[2022-03-16] MEDS ORDERED: MAGNESIUM HYDROXIDE SUSPENSION 30 ML UDCUP PO PRN (13:15)
[2022-03-16] MEDS: AmLODIPine BESYLATE 5 MG TABLET PO SCH (13:26)
[2022-03-16] MEDS ORDERED: SODIUM CHLORIDE 0.9% 100 ML ONE (13:28)
[2022-03-16] MEDS ORDERED: IOHEXOL 350 MG/ML 100 ML VIAL ONE (13:28)
[2022-03-16] MEDS: CefTRIAXone 1 GM/DEXTROSE 50 ML IV SCH (13:30)
[2022-03-16] MEDS ORDERED: IPRATROPIUM BROMIDE 0.5 MG/2.5 ML NEB SOLUTION NEB SCH (14:00)
[2022-03-16] MEDS ORDERED: ALBUTEROL SULFATE 2.5 MG/0.5 ML NEB SOLUTION NEB SCH (14:00)
[2022-03-16] MEDS: AZITHROMYCIN 500 MG/NS 250 ML IV SCH (14:45)
[2022-03-16] MEDS: BENZONATATE 100 MG CAPSULE PO SCH ×2 (16:11→20:48)
[2022-03-16] MEDS: HEPARIN SODIUM,PORCINE 5,000 UNITS/ML VIAL SQ SCH ×2 (16:11→23:45)
[2022-03-16 17:36] LABS: GLUCOSE,POINT OF CARE 207 MG/DL (70-110)
[2022-03-16] MEDS: MethylPREDNISolone SOD SUCC 125 MG/2 ML VIAL IVP SCH ×2 (17:46→23:45)
[2022-03-16 18:33] VITALS: BP 158/103
[2022-03-16 19:59] VITALS: BP 165/91
[2022-03-16] MEDS: DOCUSATE SODIUM 100 MG CAPSULE PO SCH (20:48)
[2022-03-16] MEDS: GuaiFENesin SR 600 MG ER TABLET PO SCH (20:48)
[2022-03-16] MEDS: HydrALAZINE HCL 10 MG TABLET PO PRN (20:49)
[2022-03-16] MEDS ORDERED: DEXTROSE 50%-WATER 25 GM/50 ML SYRINGE IVP PRN (22:00)
[2022-03-16] MEDS: INSULIN LISPRO 100 UNITS/ML SQ PRN (22:27)
[2022-03-17 00:30] VITALS: BP 158/99
[2022-03-17 04:32] VITALS: BP 159/76
[2022-03-17] MEDS: MethylPREDNISolone SOD SUCC 125 MG/2 ML VIAL IVP SCH ×3 (06:40→17:02)
[2022-03-17] MEDS: INSULIN LISPRO 100 UNITS/ML SQ PRN ×4 (06:58→21:20)
[2022-03-17 07:33] LABS: BASOPHILS % (AUTO) 0.1 % (0.0-2.0); EOSINOPHILS % (AUTO) 0 % (1.0-6.0); HEMATOCRIT 45.1 % (41-53); HEMOGLOBIN 15.1 g/dL (13.5-17.5); LYMPHOCYTES # (AUTO) 0.6 K/uL (1.0-4.8); LYMPHOCYTES % (AUTO) 4.2 % (22.0-44.0); MEAN CORPUSCULAR HEMOGLOBIN 28.5 pg (26.0-34.0); MEAN CORPUSCULAR HGB CONC 33.5 G/dL (31.0-37.0); MEAN CORPUSCULAR VOLUME 85 fL (80-100); MONOCYTES # (AUTO) 0.2 K/uL (0.1-1.0); MONOCYTES % (AUTO) 1.8 % (2.0-9.0); NEUTROPHILS # (AUTO) 12.4 K/uL (1.8-7.7); PLATELET COUNT (AUTO) 224 K/uL (150-450); RED BLOOD CELL COUNT(AUTO) 5.31 MIL/uL (4.50-5.90); RED CELL DISTRIBUTION WIDTH 15.3 % (11.5-14.5)
[2022-03-17 07:42] VITALS: BP 184/78
[2022-03-17 07:42] LABS: NEUTROPHILS % (AUTO) 93.9 % (40.0-70.0)
[2022-03-17 07:46] LABS: CREATININE 1.37 mg/dL (0.60-1.30); POTASSIUM 3.9 mmol/L (3.5-5.1)
[2022-03-17] MEDS: BENZONATATE 100 MG CAPSULE PO SCH ×3 (08:03→21:12)
[2022-03-17] MEDS: HydrALAZINE HCL 10 MG TABLET PO PRN ×2 (08:03→21:12)
[2022-03-17] MEDS: AmLODIPine BESYLATE 5 MG TABLET PO SCH (08:03)
[2022-03-17] MEDS: DOCUSATE SODIUM 100 MG CAPSULE PO SCH ×2 (08:04→21:00)
[2022-03-17] MEDS: GuaiFENesin SR 600 MG ER TABLET PO SCH ×2 (08:04→21:12)
[2022-03-17] MEDS: HEPARIN SODIUM,PORCINE 5,000 UNITS/ML VIAL SQ SCH ×2 (08:04→16:49)
[2022-03-17] MEDS: PANTOPRAZOLE SODIUM 40 MG DR TABLET PO SCH (08:04)
[2022-03-17] MEDS ORDERED: AmLODIPine BESYLATE 5 MG TABLET PO ONE (10:30)
[2022-03-17 11:42] VITALS: BP 172/100
[2022-03-17] MEDS: CefTRIAXone 1 GM/DEXTROSE 50 ML IV SCH (14:00)
[2022-03-17] MEDS: AZITHROMYCIN 500 MG/NS 250 ML IV SCH (15:00)
[2022-03-17 15:28] VITALS: BP 166/99
[2022-03-17] MEDS ORDERED: SODIUM CHLORIDE 0.9% 250 ML IV ONE (16:45)
[2022-03-17 20:00] VITALS: BP 160/88
[2022-03-18] VITALS: BP 161/98
[2022-03-18] MEDS: HEPARIN SODIUM,PORCINE 5,000 UNITS/ML VIAL SQ SCH ×2 (01:11→08:16)
[2022-03-18] MEDS: MethylPREDNISolone SOD SUCC 125 MG/2 ML VIAL IVP SCH ×2 (01:11→06:35)
[2022-03-18 04:00] VITALS: BP 163/94
[2022-03-18 06:41] LABS: EOSINOPHILS % (AUTO) 0 % (1.0-6.0); HEMATOCRIT 44.5 % (41-53); HEMOGLOBIN 14.9 g/dL (13.5-17.5); LYMPHOCYTES # (AUTO) 0.6 K/uL (1.0-4.8); LYMPHOCYTES % (AUTO) 3.4 % (22.0-44.0); MEAN CORPUSCULAR HEMOGLOBIN 28.8 pg (26.0-34.0); MEAN CORPUSCULAR HGB CONC 33.5 G/dL (31.0-37.0); MEAN CORPUSCULAR VOLUME 86 fL (80-100); MONOCYTES # (AUTO) 0.4 K/uL (0.1-1.0); MONOCYTES % (AUTO) 2.7 % (2.0-9.0); NEUTROPHILS # (AUTO) 15.3 K/uL (1.8-7.7); PLATELET COUNT (AUTO) 219 K/uL (150-450); RED BLOOD CELL COUNT(AUTO) 5.18 MIL/uL (4.50-5.90); RED CELL DISTRIBUTION WIDTH 15.2 % (11.5-14.5)
[2022-03-18 06:46] LABS: NEUTROPHILS % (AUTO) 93.9 % (40.0-70.0)
[2022-03-18] MEDS: INSULIN LISPRO 100 UNITS/ML SQ PRN ×2 (06:48→12:00)
[2022-03-18 06:56] LABS: CALCIUM, TOTAL 9.1 mg/dL (8.8-10.5); CREATININE 1.62 mg/dL (0.60-1.30)
[2022-03-18 07:04] LABS: CHOL/HDL RATIO 3.7 (4.2-7.3)
[2022-03-18] MEDS: BENZONATATE 100 MG CAPSULE PO SCH (08:14)
[2022-03-18] MEDS: HydrALAZINE HCL 10 MG TABLET PO PRN (08:15)
[2022-03-18] MEDS: PANTOPRAZOLE SODIUM 40 MG DR TABLET PO SCH (08:15)
[2022-03-18] MEDS: GuaiFENesin SR 600 MG ER TABLET PO SCH (08:15)
[2022-03-18] MEDS: DOCUSATE SODIUM 100 MG CAPSULE PO SCH (08:15)
[2022-03-18 08:17] VITALS: BP 180/102
[2022-03-18] MEDS ORDERED: AmLODIPine BESYLATE 5 MG TABLET PO SCH (09:00)
[2022-03-18] MEDS ORDERED: METO25 PO (09:44)
[2022-03-18] MEDS ORDERED: AMLO-257 PO (09:44)
[2022-03-18] MEDS ORDERED: PRED-554 PO (09:44)
[2022-03-18] MEDS ORDERED: PRED-549 PO (09:44)
[2022-03-18] MEDS ORDERED: IPRAHFA IH (09:45)
[2022-03-18] MEDS ORDERED: METOPROLOL TARTRATE 25 MG TABLET PO SCH (09:45)
[2022-03-18] MEDS ORDERED: ALBU8HFA IH (09:45)
[2022-03-18 10:37] VITALS: BP 170/101
[2022-03-18 11:50] VITALS: BP 138/82
[2022-03-18] MEDS ORDERED: MethylPREDNISolone SOD SUCC 40 MG/ML VIAL IVP SCH (16:00)
[2022-03-19 20:04] LABS: GLUCOMETER DEV NAME(LOC) 5N.1C; GLUCOSE,POINT OF CARE 232 MG/DL (70-110)
[2022-03-19 20:04] LABS: GLUCOMETER DEV NAME(LOC) 5N.1C; GLUCOSE,POINT OF CARE 170 MG/DL (70-110)
[2022-03-19 20:04] LABS: GLUCOMETER DEV NAME(LOC) 5S.2B; GLUCOSE,POINT OF CARE 232 MG/DL (70-110)
[2022-03-19 20:04] LABS: GLUCOMETER DEV NAME(LOC) 5N.1C; GLUCOSE,POINT OF CARE 178 MG/DL (70-110)
[2022-03-19 20:04] LABS: GLUCOMETER DEV NAME(LOC) 5S.2B; GLUCOSE,POINT OF CARE 245 MG/DL (70-110)
[2022-03-19 20:04] LABS: GLUCOMETER DEV NAME(LOC) 5N.1C; GLUCOSE,POINT OF CARE 160 MG/DL (70-110)
[2022-03-19 20:04] LABS: GLUCOMETER DEV NAME(LOC) 5N.1C; GLUCOSE,POINT OF CARE 236 MG/DL (70-110)
== END 2022-03-18 14:15 | disposition home or self-care (01) | DRG 193 ==
LOC: EMS 05:45 → 5S 17:48
PROVIDERS: ADMIT Internal Medicine; ATTEND Internal Medicine
PROC: 5A09357 Assistance with Respiratory Ventilation, Less than 24 Consecutive Hours, Continuous Positive Airway Pressure (ICD-10-PCS; principal; 2022-03-16)
DX: J18.9 Pneumonia, unspecified organism (principal); J96.02 Acute respiratory failure with hypercapnia; R65.11 Systemic inflammatory response syndrome (SIRS) of non-infectious origin with acute organ dysfunction; J44.0 Chronic obstructive pulmonary disease with (acute) lower respiratory infection; J44.1 Chronic obstructive pulmonary disease with (acute) exacerbation; E87.1 Hypo-osmolality and hyponatremia; J98.11 Atelectasis; N17.9 Acute kidney failure, unspecified; J90 Pleural effusion, not elsewhere classified; F17.210 Nicotine dependence, cigarettes, uncomplicated; I10 Essential (primary) hypertension; E11.9 Type 2 diabetes mellitus without complications; K21.9 Gastro-esophageal reflux disease without esophagitis; F15.10 Other stimulant abuse, uncomplicated; Z20.822 Contact with and (suspected) exposure to COVID-19; Z87.11 Personal history of peptic ulcer disease; Z91.199 Patient's noncompliance with other medical treatment and regimen due to unspecified reason; Z79.899 Other long term (current) drug therapy; Z59.00 Homelessness unspecified; Z71.6 Tobacco abuse counseling
CPT/HCPCS: 36600; 71045; 71275; 80048; 80053; 80061; 81001; 81002; 82550; 82805; 82962; 83036; 83880; 84484; 85025; 85379; 87040; 87086; 87804; 93005; 93306; 94640; 94660; 99291; J0360; J0456; J0696; J1644; J1940; J2930; J7050; Q9967; 36415-L1; 36415-TC; J7613